=== PATIENT | female | born 1985 | race Caucasian/White ===

== ENCOUNTER 2024-08-10 12:51 | Emergency (ER) | payer BC ==
[2024-08-10] MEDS: Bupivacaine 0.5% 30 ML SDV INJECT PRN (13:14)
[2024-08-10] MEDS: Diphtheria,Pertussis(Acell),Tetanus Vaccine 0.5 ML Syringe IM ONE (13:14)
== END 2024-08-10 13:45 | disposition home or self-care (01) ==
LOC: VM.ED 12:51
DX: S69.92XA Unspecified injury of left wrist, hand and finger(s), initial encounter (principal); Z88.5 Allergy status to narcotic agent; Z79.899 Other long term (current) drug therapy; W45.8XXA Other foreign body or object entering through skin, initial encounter
CPT/HCPCS: 64450; 90471; 90715; 99283; J0665